=== PATIENT | male | born 1990 | race Caucasian/White ===

== ENCOUNTER 2016-05-15 18:38 | Emergency (ER) | payer SELFPAY ==
[~2016-05-15] VITALS: Ht 182.9 cm; Wt 88.7 kg
[2016-05-15 18:46] VITALS: BP 134/102; PULSE 85; RESP 16; TEMP 98.9; O2SAT 98
[2016-05-15] MEDS ORDERED: DEXAMETHASONE SOD PHOS 20 MG/5 ML VIAL IM ONE (20:30)
[2016-05-15] MEDS ORDERED: KETOROLAC TROMETHAMINE 60 MG/2 ML (IM) VIAL IM ONE (20:30)
[2016-05-15] MEDS ORDERED: ORPHENADRINE INJ 60 MG/2 ML AMP IM ONE (20:30)
--- NOTE | 2016-05-15 20:43 | PD ---
HPI Chief Complaint: Back/ Neck Pain or Injury Time Seen by Provider: 20:40 Travel History International Travel<30 days: No Contact w/Intl Traveler<30days: No Traveled to known affect area: No History of Present Illness HPI Patient is a 25-year-old male presenting to the emergency evaluation of left lower back pain that radiates down the back of his leg. Patient states he's had frequent exacerbations over the last 5 months. His symptoms are the same as they have been in the past. He states that his mom is given Lortabs, he has taken naproxen and ibuprofen. This exacerbation has been ongoing for 2 days. He states he doesn't normally last this long. He denies any bladder or bowel incontinence, no saddle paresthesia, no weakness in extremities extremities. He denies any injury or trauma now or in the past before the pain started. [facility], [facility] Past Medical History ADD: Yes Diminished Hearing: No Respiratory: Yes (Collapsed lung age 3) Pneumonia: Yes (As child) Influenza Vaccination: No Past Surgical History Oral Surgery: Yes ([place] teeth) Social History Alcohol Use: Yes (Socially) Tobacco Use: Yes (1 PPD) Substance Use: No (Denies) Allergies-Medications (Allergen,Severity, Reaction): Coded Allergies: No Known Allergies (Unverified , 05/15/16) Reported Meds & Prescriptions Reported Meds & Active Scripts Active No Active Prescriptions or Reported Medications Review of Systems Except as stated in HPI: all other systems reviewed are Neg Musculoskeletal: Positive: Myalgias, Cramping, Pain Physical Exam Narrative GENERAL: Developed, well nourished, alert male. Appears uncomfortable , in no acute distress. SKIN: Warm and dry. HEAD: Atraumatic. Normocephalic. EYES: Pupils equal and round. No scleral icterus. No injection or drainage. ENT: No nasal bleeding or discharge. Mucous membranes pink and moist. NECK: Trachea midline. No JVD. CARDIOVASCULAR: Regular rate and rhythm. No murmur appreciated. RESPIRATORY: No accessory muscle use. Clear to auscultation. Breath sounds equal bilaterally. GASTROINTESTINAL: Abdomen soft, non-tender, nondistended. Hepatic and splenic margins not palpable. MUSCULOSKELETAL: No obvious deformities. No clubbing. No cyanosis. No edema. Left leg with elicits pain in the left lower back. No tenderness to palpation on thoracic or lumbar spine. 5/5 muscle strength in bilateral lower extremities. Patient is neurovascularly intact NEUROLOGICAL: Awake and alert. No obvious cranial nerve deficits. Motor grossly within normal limits. Normal speech. PSYCHIATRIC: Appropriate mood and affect; insight and judgment normal. Data Data Last Documented VS Vital Signs Date Time Temp Pulse Resp B/P Pulse Ox O2 Delivery O2 Flow Rate FiO2 05/15/16 18:46 98.9 85 16 134/102 98 Orders Ketorolac Inj (Toradol Inj) (05/15/16 20:30) Dexamethasone Inj (Decadron Inj) (05/15/16 20:30) Orphenadrine Inj (Norflex Inj) (05/15/16 20:30) [facility] Medical Decision Making Medical Screen Exam Complete: Yes Emergency Medical Condition: Yes Interpretation(s) Vital Signs Date Time Temp Pulse Resp B/P Pulse Ox O2 Delivery O2 Flow Rate FiO2 05/15/16 18:46 98.9 85 16 134/102 98 Differential Diagnosis Sciatic versus strain versus spasm versus discogenic pain versus other Narrative Course Patient is a 25-year-old male presenting to emergency Department with his mother for evaluation of left lower back pain. Pain has been intermittent for the last 5 months, there was no initial injury or trauma. There is no trauma or injury now. Patient is neurologically intact, there was no weakness noted. Patient was given Toradol, dexamethasone, and Norflex in the emergency department. Patient was observed taking positions in the bed without difficulty. Whereas before he could barely sit up without pain. He was encouraged to medications consistently for 24-48 hours and then as needed. He was encouraged to follow- up with the primary doctor, he was encouraged to return to emergency department for any new or worsening symptoms. He verbalized understanding of these instructions. Patient is stable for discharge. Diagnosis Primary Impression: Sciatica of left side Referrals: Primary Care Physician Patient Instructions: General Instructions, Sciatica (ED) Additional Instructions: Follow-up with your primary care provider Take medications as directed Avoid bed rest, avoid exacerbating activities, apply warm moist heat to affected area Return to emergency department for any new or worsening symptoms Med/Other Pt SpecificInfo: Prescription(s) given Scripts Cyclobenzaprine (Flexeril)10 Mg Tab10 Mg PO TID PRN (MUSCLE SPASM) 10 Days Ref 0 Prov:aCrmen Cueto 05/15/16 Ibuprofen 800 Mg Nep130 Mg PO Q6HR PRN (PAIN) #40 TAB Ref 0 Prov:Carmen Cueto 05/15/16 Prednisone 50 Mg Tab50 Mg PO DAILY #5 TAB Ref 0 Prov:Carmen Cueto 05/15/16 Disposition: 01 DISCHARGE HOME Condition: Stable Carmen Cueto May 15, 2016 20:43
[2016-05-15] MEDS ORDERED: IBUP800T23 PO (21:43)
[2016-05-15] MEDS ORDERED: PRED50 PO (21:43)
[2016-05-15] MEDS ORDERED: CYCL1TAB29 PO (21:43)
[2016-05-15 21:44] VITALS: BP 122/64
== END 2016-05-15 21:58 | disposition home or self-care (01) ==
LOC: PHED 18:38 → PHEFT 21:58
DX: M54.42 Lumbago with sciatica, left side (principal)
CPT/HCPCS: 96372; 99283; J1100; J1885; J2360